=== PATIENT | female | born 1945 | race Caucasian/White ===

== ENCOUNTER → 2017-01-23 | Outpatient (CLI) | payer OTHER ==
[~2017-01-23] MED LIST: CALCITRIOL0.25 MCG PO; IBUPROFEN 600600 M1 PO; LIVALO2 MG PO; MULTIVITAMINS1 EAC7; SYNTHROID25 MCG PO; TRAMADOL 50 MG50 MG PO
== END ==
LOC: RAD 15:01
DX: M25.572 Pain in left ankle and joints of left foot (principal); M79.89 Other specified soft tissue disorders

== ENCOUNTER 2018-08-15 15:50 | Inpatient (IN) | payer OTHER ==
[~2018-08-15] VITALS: Ht 152.4 cm; Wt 59.7 kg
--- NOTE | ~2018-08-15 | HC ---
[facility] [place] [address] CONSULTATION Name: JOSE MARIA GREGORY Jadiel Room #: 202-P ADM IN M.R.#: [id number] Admission: 08/15/18 Attend Phys: Gordon [facility]ascorro MD, [facility] Discharge: Date of : 41 Report #: [id number] THIS REPORT FOR: //name// CC: Gordon Mascorro REASON FOR CONSULTATION: Palpitations. HISTORY OF PRESENT ILLNESS: The patient is a 73-year-old woman who has a history of hypertension and dyslipidemia. Over the past couple of months, she has had several episodes of palpitations, each with associated near syncope. First episode occurred about 4 months ago when she was cooking. She became lightheaded and had to lie down on the floor to keep from passing out. She felt her heart racing at that time. This symptom lasted for about 2 hours. A similar episode occurred while she was playing [employer] about a month ago and then another episode yesterday. Yesterday's episode was the longest lasting and she presented to the Emergency Department, where an EKG demonstrated atrial flutter with a rapid ventricular response. She received intravenous Cardizem and she converted to sinus rhythm. She feels back to normal. In association with the palpitations, she had mild shortness of breath, lightheadedness and vague feeling in the mid portion of her chest and in between her shoulder blades. This resolved with shinto of sinus rhythm. She denies heart failure symptoms. No history of rhythm disturbances. She thinks her last stress study was about 3 years ago and was nonischemic. An echocardiogram a year ago was normal, other than mild concentric LVH. ALLERGIES: SHE HAS WEED INTOLERANCE. MEDICATIONS: Include levothyroxine 50 mcg daily. PAST MEDICAL HISTORY: Her past history and medical records have been reviewed and include a history of cholecystectomy, tonsillectomy, rotator cuff surgery and appendectomy. SOCIAL HISTORY: She is nonsmoker, nondrinker. . FAMILY HISTORY: Unremarkable for premature coronary disease. REVIEW OF SYSTEMS: All systems negative, except as that noted above. PHYSICAL EXAMINATION: GENERAL: This is a pleasant woman in no distress. VITAL SIGNS: Blood pressure is 128/63, heart rate is 66 and regular. She is afebrile. HEENT: There are neither xanthelasma, subcutaneous xanthomata, oral mucosal, digital cyanosis or kyphoscoliosis present. CHEST: Clear to auscultation and percussion. CARDIAC EXAMINATION: Reveals a regular rate and rhythm with normal S1, S2. [facility] [address] [place] [address] CONSULTATION Name: JOSE MARIA GREGORY I Room #: 202-P [facility]#: [id number] Admission: 08/15/18 Attend Phys: Gordon Mascorro MD, FAAF Discharge: Date of : 41 Report #: [id number] murmurs or rubs. ABDOMEN: Soft and nontender. EXTREMITIES: Without cyanosis, clubbing or edema. Radial pulses are 2+. NEUROLOGIC: She is alert with a nonfocal exam. LABORATORY DATA: EKG, sinus rhythm with minimal nonspecific ST-segment abnormality. Sodium 138, potassium 3.7 and creatinine 0.9. Troponin 0. ProBNP normal. White count 7.6, hemoglobin 15, hematocrit 45 and platelet count 229,000. Chest x-ray is normal. IMPRESSION: 1. Paroxysmal atrial flutter with a rapid ventricular response. 2. Mild hypertension. 3. Dyslipidemia. 4. Hypercoagulable. RECOMMENDATIONS: 1. Add low-dose Cardizem or beta blockade. 2. Anticoagulant therapy in light of elevated CHADS-VASc score. 3. We will arrange outpatient stress testing and echocardiogram with Doppler. 4. If intolerant to medicines, would consider atrial flutter ablation and/or addition of targeted antiarrhythmic therapy. I have discussed these issues with the patient and her daughter. Thank you for asking me to participate in her care. <ELECTRONICALLY SIGNED> By: Timothy Erazo MD, [facility] 08/17/18 1034 0819 1159 Timothy Erazo MD, FACC /nt
--- NOTE | ~2018-08-15 | EKG ---
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 08/16/18 1101 0743 Timothy Erazo MD, [facility] /EPI
--- NOTE | ~2018-08-15 | EKG ---
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 : 1945 Requested By: Hao Guerra Order Number: [id number] MD: Timothy Erazo Measurements Intervals [place] Rate: 161 P: 221 [place]: 78 QRS: 16 QRSD: 78 T: 105 QT: 304 QTc: 498 Interpretive Statements Supraventricular tachycardia, probable atrial flutter with a rapid ventricular response Repolarization abnormality, prob rate related Compared to ECG 07/25/2014 13:46:56 Atrial flutter has replaced sinus rhythm Electronically Signed On 08-16-2018 10:58:49 INSURANCE SOLICITOR by Timothy Erazo [email or web address] <ELECTRONICALLY SIGNED> By: Timothy Erazo MD, FACC 08/16/18 1058 1600 1600 Timothy Erazo MD, [facility] /EPI
[~2018-08-15 15:50] MED LIST changes: +SYNTHROID25 MC1 PO; -SYNTHROID25 MCG PO
[2018-08-15 16:04] VITALS: BP 122/93
[2018-08-15 16:14] LABS: HEMATOCRIT 45.4 % (37.0-47.0); HEMOGLOBIN 15.7 gm/dL (12.0-15.0); MCH 30.4 pg (26.0-34.0); MCHC 34.6 g/dL (28.0-37.0); MCV 87.8 fL (80.0-100.0); PLATELET COUNT 229 thou/uL (150-400); RBC 5.16 mil/uL (4.20-5.00); RDW 14.4 % (10.5-14.5); WBC 7.6 thou/uL (4.0-11.0)
[2018-08-15 16:22] LABS: ANION GAP 8 mmol/L (7-16); BUN 20 mg/dL (7-18); CALCIUM 9.7 mg/dL (8.5-10.1); CHLORIDE 103 mmol/L (98-107); CO2 27 mmol/L (21-32); CREATININE 0.9 mg/dL (0.6-1.0); GLUCOSE 121 mg/dL (74-106); POTASSIUM 3.7 mmol/L (3.5-5.1); SODIUM 138 mmol/L (136-145)
[2018-08-15 16:30] LABS: TROPONIN-I <0.06 ng/mL (<0.06)
[2018-08-15 16:33] LABS: ABSOLUTE NEUTROPHILS 3.3 thou/uL (1.4-8.2)
[2018-08-15 17:24] VITALS: BP 94/61
[2018-08-15 18:32] VITALS: BP 131/78
[2018-08-15 19:36] VITALS: BP 119/65
[2018-08-15 19:37] VITALS: BP 119/65
[2018-08-16 00:08] VITALS: BP 136/71
[2018-08-16 05:59] VITALS: BP 128/63
[2018-08-16 08:51] VITALS: BP 140/86
[2018-08-16 16:25] VITALS: BP 130/76
[2018-08-16 19:06] VITALS: BP 131/80
[2018-08-17 03:32] VITALS: BP 125/80
[2018-08-17 04:53] LABS: ABSOLUTE NEUTROPHILS 3.5 thou/uL (1.4-8.2); BASOPHILS 0.7 % (0.0-2.0); EOSINOPHILS 3.4 % (0.0-3.0); HEMATOCRIT 42.7 % (37.0-47.0); HEMOGLOBIN 14.4 gm/dL (12.0-15.0); LYMPHOCYTES 36.1 % (24.0-44.0); MCH 29.7 pg (26.0-34.0); MCHC 33.6 g/dL (28.0-37.0); MCV 88.2 fL (80.0-100.0); MONOCYTES 11.3 % (1.0-8.0); PLATELET COUNT 205 thou/uL (150-400); POLYS 48.5 % (36.0-66.0); RBC 4.84 mil/uL (4.20-5.00); RDW 14.9 % (10.5-14.5); WBC 7.2 thou/uL (4.0-11.0)
[2018-08-17 05:06] LABS: CALCIUM 8.8 mg/dL (8.5-10.1); CREATININE 0.8 mg/dL (0.6-1.0)
[2018-08-17 09:31] VITALS: BP 141/87
[2018-08-17 13:43] VITALS: BP 113/69
[2018-08-17] MEDS ORDERED: DILTIAZEM 24HR180 M1 PO (16:18)
[2018-08-17] MEDS ORDERED: ELIQUIS5 MG PO (16:18)
[2018-08-17 16:39] VITALS: BP 113/69
== END 2018-08-17 17:40 | disposition home or self-care (01) | DRG 309 ==
LOC: ER 15:50 → 2N 17:35 → EROBS 17:35 → 2N 18:27
PROVIDERS: Emergency Medicine; Family Medicine
DX: I48.0 Paroxysmal atrial fibrillation (principal); D68.59 Other primary thrombophilia; I10 Essential (primary) hypertension; E78.5 Hyperlipidemia, unspecified; I48.92 Unspecified atrial flutter; Z90.49 Acquired absence of other specified parts of digestive tract; Z88.0 Allergy status to penicillin; Z88.8 Allergy status to other drugs, medicaments and biological substances; Z91.041 Radiographic dye allergy status; Z82.49 Family history of ischemic heart disease and other diseases of the circulatory system
CPT/HCPCS: 10081

== ENCOUNTER → 2019-09-22 | Outpatient (CLI) | payer OTHER ==
[~2019-09-22] MED LIST changes: +DILTIAZEM 24HR180 M1 PO; +ELIQUIS5 MG PO
== END ==
LOC: SJCVC 13:22
DX: R94.31 Abnormal electrocardiogram [ECG] [EKG] (principal); I48.0 Paroxysmal atrial fibrillation; E78.00 Pure hypercholesterolemia, unspecified; I10 Essential (primary) hypertension; D68.59 Other primary thrombophilia; Z79.899 Other long term (current) drug therapy

== ENCOUNTER → 2020-07-15 | Outpatient (CLI) | payer OTHER | LOC: SJCVC 10:52 | PROVIDERS: ATTEND Internal Medicine Cardiovascular Disease | DX: I11.9 Hypertensive heart disease without heart failure (principal); E78.00 Pure hypercholesterolemia, unspecified; I48.0 Paroxysmal atrial fibrillation; R00.1 Bradycardia, unspecified; Z79.899 Other long term (current) drug therapy ==

== ENCOUNTER → 2020-10-03 | Outpatient (CLI) | payer OTHER | LOC: SJCVC 09:38 | PROVIDERS: ATTEND Internal Medicine Cardiovascular Disease | DX: R00.1 Bradycardia, unspecified (principal); R94.31 Abnormal electrocardiogram [ECG] [EKG]; I11.9 Hypertensive heart disease without heart failure; I48.0 Paroxysmal atrial fibrillation; E78.00 Pure hypercholesterolemia, unspecified; R53.83 Other fatigue; R42 Dizziness and giddiness; Z88.0 Allergy status to penicillin; Z88.6 Allergy status to analgesic agent; Z88.8 Allergy status to other drugs, medicaments and biological substances; Z90.89 Acquired absence of other organs; Z90.49 Acquired absence of other specified parts of digestive tract; Z98.890 Other specified postprocedural states ==

== ENCOUNTER → 2020-10-05 | Outpatient (CLI) | payer OTHER | LOC: SJCVCIMAG 10:34 | PROVIDERS: ATTEND Internal Medicine Cardiovascular Disease | DX: I08.1 Rheumatic disorders of both mitral and tricuspid valves (principal); R00.1 Bradycardia, unspecified; I48.0 Paroxysmal atrial fibrillation; E78.00 Pure hypercholesterolemia, unspecified; I11.9 Hypertensive heart disease without heart failure; R53.83 Other fatigue; R42 Dizziness and giddiness; Z90.49 Acquired absence of other specified parts of digestive tract; Z98.890 Other specified postprocedural states; Z88.8 Allergy status to other drugs, medicaments and biological substances; Z79.899 Other long term (current) drug therapy ==

== ENCOUNTER → 2021-02-06 | Outpatient (CLI) | payer OTHER | LOC: SJCVCIMAG 09:02 | PROVIDERS: ATTEND Internal Medicine Cardiovascular Disease | DX: I08.1 Rheumatic disorders of both mitral and tricuspid valves (principal); I11.9 Hypertensive heart disease without heart failure; R94.31 Abnormal electrocardiogram [ECG] [EKG]; I48.0 Paroxysmal atrial fibrillation; E78.00 Pure hypercholesterolemia, unspecified; D68.59 Other primary thrombophilia; Z90.49 Acquired absence of other specified parts of digestive tract; Z88.0 Allergy status to penicillin; Z88.8 Allergy status to other drugs, medicaments and biological substances; Z79.899 Other long term (current) drug therapy ==

== ENCOUNTER → 2021-10-09 | Outpatient (CLI) | payer OTHER | LOC: SJCVC 10:39 | PROVIDERS: ATTEND Internal Medicine Cardiovascular Disease | DX: I49.8 Other specified cardiac arrhythmias (principal); I10 Essential (primary) hypertension; E78.00 Pure hypercholesterolemia, unspecified; I48.0 Paroxysmal atrial fibrillation; I38 Endocarditis, valve unspecified; Z90.49 Acquired absence of other specified parts of digestive tract; Z98.890 Other specified postprocedural states; Z79.01 Long term (current) use of anticoagulants; Z79.899 Other long term (current) drug therapy; Z88.0 Allergy status to penicillin; Z88.8 Allergy status to other drugs, medicaments and biological substances ==